=== PATIENT | female | born 1990 ===

== ENCOUNTER 2020-05-31 13:31 | Outpatient (CLI) | payer SELFPAY ==
[2020-06-01 11:37] LABS: SARS-CoV-2 PCR by NAA Not Detected (NotDetected)
== END 2020-05-31 13:32 | disposition home or self-care (01) ==
LOC: CSHLAB 13:31
PROVIDERS: ATTEND Family Medicine
DX: Z20.822 Contact with and (suspected) exposure to COVID-19 (principal)
CPT/HCPCS: 87635; U0003; U0005